=== PATIENT | male | born 1985 | race Caucasian/White ===

== ENCOUNTER 2019-01-06 20:04 | Emergency (ER) | payer SELFPAY ==
[~2019-01-06] VITALS: Wt 103.0 kg
[2019-01-06 20:08] VITALS: BP 145/86; PULSE 65; RESP 20
== END 2019-01-07 00:38 | disposition left against medical advice (07) ==
LOC: FTE 20:04
DX: Z53.21 Procedure and treatment not carried out due to patient leaving prior to being seen by health care provider (principal)